=== PATIENT | male | born 2000 | race Caucasian/White ===

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

== ENCOUNTER 2022-05-24 12:07 | Emergency (ER) | payer BC ==
[~2022-05-24] VITALS: Ht 182.9 cm; Wt 95.5 kg
[2022-05-24 12:23] VITALS: TEMP 98
[2022-05-24] MEDS ORDERED: PEPCID 20MG TAB20 MG PO (13:10)
[2022-05-24] MEDS ORDERED: ZOFRAN ODT4 MG PO (13:10)
[2022-05-24 13:15] VITALS: BP 125/77; PULSE 60
== END 2022-05-24 13:15 | disposition home or self-care (01) ==
LOC: COL.ER 12:07
DX: U07.1 COVID-19 (principal); Z73.0 Burn-out

== ENCOUNTER 2023-10-09 11:32 | Emergency (ER) | payer BC ==
[~2023-10-09] VITALS: Ht 180.3 cm; Wt 109.1 kg
[~2023-10-09 11:32] MED LIST: PEPCID 20MG TAB20 MG PO; ZOFRAN ODT4 MG PO
[2023-10-09 11:36] VITALS: TEMP 98.3
[2023-10-09] MEDS ORDERED: Ketorolac 15 MG/ML VIAL IV ONE (12:00)
[2023-10-09 12:06] LABS: BASO # 0.1 K/mm3 (0.0-0.2); BASO % 0.9 % (0.0-2.0); EOS # 0.1 K/mm3 (0.0-0.7); EOS % 1.4 % (0.0-4.0); GRAN # 4.6 K/mm3 (1.4-6.5); GRAN % 54.2 % (42.2-75.2); HEMATOCRIT 46.7 % (42.0-52.0); HEMOGLOBIN 15.5 g/dl (13.5-18.0); LYMPH # 2.8 K/mm3 (1.2-3.4); LYMPH % 32.5 % (20.0-51.0); MEAN CELL VOLUME 90 fl (80.0-100.0); MEAN CORPUSCULAR HEMOGLOBIN 30 pg (27-31); MEAN CORPUSCULAR HGB CONC 33 g/dl (33.0-37.0); MEAN PLATELET VOLUME 11.1 fl (7.4-10.4); MONO # 0.9 K/mm3 (0.1-0.6); MONO % 10.6 % (1.7-9.3); PLATELET COUNT 241 K/mm3 (130-400); RED BLOOD COUNT 5.18 M/mm3 (4.20-5.60); REDCELL DISTRIBUTION WIDTH-CV 11.9 % (11.5-14.5)
[2023-10-09 12:50] VITALS: BP 129/73; PULSE 76
== END 2023-10-09 12:52 | disposition home or self-care (01) ==
LOC: COL.ER 11:32
PROVIDERS: Family Medicine
DX: R09.1 Pleurisy (principal); R07.9 Chest pain, unspecified
CPT/HCPCS: J1885